=== PATIENT | female | born 1950 | race African-American/Black ===

== ENCOUNTER 2016-08-20 01:41 | Emergency (ER) | payer BC ==
[~2016-08-20] VITALS: Ht 165.1 cm; Wt 90.7 kg
[2016-08-20 03:10] VITALS: BP 136/72
[2016-08-20] MEDS ORDERED: HYDR-2666 PO (03:18)
--- NOTE | 2016-08-20 03:19 | PHYS DOC ---
Past Medical History Past Medical History: Hypertension Past Surgical History: Tonsillectomy, Other Additional Past Surgical Histo: hernia repair Alcohol Use: Occasionally Drug Use: None Adult General Chief Complaint Chief Complaint: TOE PROBLEM HPI HPI 66-year-old female presenting to the emergency department after pulling a piece of furniture torture body and accidentally ripping the toenail off her first left toe. She is pain is sharp throbbing moderate mild nonradiating without alleviating factors. Review of systems is negative for chest pain shortness of breath abdominal pain nausea vomiting. All other review systems is negative. Review of Systems Review of Systems see above Allergies Allergies Allergies Coded Allergies Type Severity Reaction Last Updated Verified No Known Drug Allergies 09/19/15 No Physical Exam Physical Exam Constitutional: Well developed, well nourished, no acute distress, non-toxic appearance. [] HENT: Normocephalic, atraumatic, bilateral external ears normal, oropharynx moist, no oral exudates, nose normal. [] Eyes: PERRLA, EOMI, conjunctiva normal, no discharge. [] Neck: Normal range of motion, no tenderness, supple, no stridor. [] Cardiovascular:Heart rate regular rhythm, no murmur [] Lungs & Thorax: Bilateral breath sounds clear to auscultation [] Abdomen: Bowel sounds normal, soft, no tenderness, no masses, no pulsatile masses. [] Skin: Warm, dry, no erythema, no rash. [] Back: No tenderness, no CVA tenderness. [] Extremities: No tenderness, no cyanosis, no clubbing, ROM intact, no edema. patient is partial tear of the first left toenail from the toe. Toenail still intact with germinal matrix. Neurologic: Alert and oriented X 3, normal motor function, normal sensory function, no focal deficits noted. [] Psychologic: Affect normal, judgement normal, mood normal. [] Current Patient Data Vital Signs Vital Signs Date Time Temp Pulse Resp B/P Pulse Ox O2 Delivery O2 Flow Rate FiO2 08/20/16 03:10 98.4 63 18 96 Room Air 98.4 EKG EKG [] Radiology/Procedures Radiology/Procedures [] Course & Med Decision Making Course & Med Decision Making Pertinent Labs and Imaging studies reviewed. (See chart for details) []66-year-old female presenting to the emergency Department after ripping toenail partially of her first left toe. the patient's toenail was placed back in an attempt position. germinal matrix still attached to toenail. patient subsequent discharged home. Dragon Disclaimer Dragon Disclaimer This electronic medical record was generated, in whole or in part, using a voice recognition dictation system. Departure Departure Impression: Primary Impression: Nail avulsion, toe Disposition: 01 HOME, SELF-CARE Condition: STABLE Referrals: THEODORA POSADA Jr, MD (PCP) Patient Instructions: Fingernail or Toenail Loss Additional Instructions: Thank you for allowing us to participate in your care today. Keep the toenail in place. Keep the wound washed and cleaned. Use protective dressing. Followup with your primary care physician in 3 days if your symptoms do not improve. If you do not have a primary care provider you can ask for a list of our primary care providers. Return to the emergency department you have any new or concerning findings. This should be evaluated by the primary care physician and any necessary consulting services for continued management within a few days after discharge. Return to emergency room if you have any new or concerning symptoms including but not limited to fever, chills, nausea, vomiting, intractable pain, any new rashes, chest pain, shortness of air, uncontrolled bleeding, difficulty breathing, and/or vision loss. Scripts Hydrocodone Bit/Acetaminophen (Hydrocodone-Apap 5-325 )1 Each Tablet1 Tab PO PRN Q6HRS PRN PAIN #7 TAB Be careful as this medication may cause you to be drowsy or tired. Do not drive on this medication. Prov:ISAAK FERMIN MD 08/20/16 ISAAK FERMIN MD Aug 20, 2016 03:18
== END 2016-08-20 03:30 | disposition home or self-care (01) ==
LOC: ER 01:41
DX: S91.202A Unspecified open wound of left great toe with damage to nail, initial encounter (principal); I10 Essential (primary) hypertension; X58.XXXA Exposure to other specified factors, initial encounter; Y93.89 Activity, other specified; Y92.89 Other specified places as the place of occurrence of the external cause; Y99.8 Other external cause status
CPT/HCPCS: 11730; 99283; 99284-25

== ENCOUNTER → 2017-01-20 | Outpatient (CLI) | payer BC ==
[~2017-01-20] MED LIST: HYDR-2758 PO
--- NOTE | 2017-01-20 14:12 | RAD ---
DATE: 01/20/2017 EXAM: DIGITAL DIAGNOSTIC RT, BREAST RIGHT HISTORY: 6 month follow-up breast nodule COMPARISON: 05/21/2016 This study was interpreted with the benefit of Computerized Aided Detection (CAD). The breast parenchyma shows scattered fibroglandular densities. Breast parenchyma level B. FINDINGS: The fibroglandular pattern in the right breast is unchanged. A small nodule projected over the axillary tail region of the right breast on the oblique view of the previous study is no longer visible. This may be due to technical factors including its far posterior location, or it may have resolved. No new or enlarging breast densities are seen. There are stable medium sized right axillary lymph nodes. No suspicious microcalcifications are evident. Right breast ultrasound, 01/20/2017: A targeted ultrasound exam was performed of the abnormal areas delineated on the 06/10/2016 study. At the 10:00 location there are heterogeneous fibroglandular shadows. The small nodule seen in that region on the previous study is no longer visible. Careful scanning of the right axilla reveals 2 benign-appearing lymph nodes. The largest of these measures 2 x 6 mm and demonstrates a normal echogenic hilum. IMPRESSION: 1. The small nodule seen at the 10:00 location on the previous studies is no longer visible either mammographically or sonographically. 2. Benign-appearing right axillary lymph nodes. 3. Bilateral mammography in 6 months is suggested BI-RADS CATEGORY: 3 PROBABLY BENIGN FINDING(S)-SHORT INTERVAL FOLLOW-UP SUGGESTED RECOMMENDED FOLLOW-UP: 6M 6 MONTH FOLLOW-UP PQRS compliance statement: Patient information was entered into a reminder system with a target due date for the next mammogram. Mammography is a sensitive method for finding small breast cancers, but it does not detect them all and is not a substitute for careful clinical examination. A negative mammogram does not negate a clinically suspicious finding and should not result in delay in biopsying a clinically suspicious abnormality. "Our facility is accredited by the [employer] Mammography [employer]."
== END | disposition home or self-care (01) ==
LOC: KCIC MAMMO 12:04
PROVIDERS: ATTEND Internal Medicine
DX: N63 Unspecified lump in breast (principal)
CPT/HCPCS: 76641; G0206; 77065

== ENCOUNTER → 2017-07-25 | Outpatient (CLI) | payer BC | END | disposition home or self-care (01) | LOC: KCIC MAMMO 12:14 | DX: N63.20 Unspecified lump in the left breast, unspecified quadrant (principal) | CPT/HCPCS: 76641; 77066 ==

== ENCOUNTER → 2018-10-30 | Outpatient (CLI) | payer BC, MEDICARE ==
[~2018-10-30] MED LIST changes: -HYDR-2758 PO; +HYDR-2761 PO
--- NOTE | 2018-10-31 17:25 | RAD ---
DATE: 10/30/2018 EXAM: MAMMO HALLE SCREENING BILATERAL HISTORY: Routine screening COMPARISON: 05/21/2016 and 07/25/2017 mammographic exams This study was interpreted with the benefit of Computerized Aided Detection (CAD). Breast Density: SCATTERED The breast parenchyma shows scattered fibroglandular densities. Breast parenchyma level B. FINDINGS: Benign-appearing axillary lymph nodes are present. No dominant mass, suspicious calcification, or distortion. IMPRESSION: Benign stable findings. BI-RADS CATEGORY: 1 NEGATIVE RECOMMENDED FOLLOW-UP: 12M 12 MONTH FOLLOW-UP PQRS compliance statement: Patient information was entered into a reminder system with a target due date in one year for the next mammogram. Mammography is a sensitive method for finding small breast cancers, but it does not detect them all and is not a substitute for careful clinical examination. A negative mammogram does not negate a clinically suspicious finding and should not result in delay in biopsying a clinically suspicious abnormality. "Our facility is accredited by the [employer] Mammography Program."
== END | disposition home or self-care (01) ==
LOC: MAMMO 13:40
PROVIDERS: ATTEND Internal Medicine
DX: Z12.31 Encounter for screening mammogram for malignant neoplasm of breast (principal); R92.8 Other abnormal and inconclusive findings on diagnostic imaging of breast
CPT/HCPCS: 77063; 77067

== ENCOUNTER 2020-01-25 13:32 | Inpatient (IN) | payer BC, MEDICARE ==
[~2020-01-25] VITALS: Ht 160 cm; Wt 87.7 kg
[2020-01-25 14:21] LABS: BILIRUBIN,URINE NEGATIVE (NEG); CLARITY,URINE CLEAR; COLOR,URINE YELLOW; NITRITE,URINE NEGATIVE (NEG); PH,URINE 5.5 (<5.0-8.0); PROTEIN,URINE NEGATIVE (NEG-TRACE); UROBILINOGEN,URINE 0.2 mg/dL (0.2 mg/dL)
--- NOTE | 2020-01-25 14:24 | PHYS DOC ---
Past Medical History Past Medical History: Hypertension Past Surgical History: Tonsillectomy, Other Additional Past Surgical Histo: hernia repair Smoking Status: Current Every Day Smoker Alcohol Use: Occasionally Drug Use: None General Adult EDM: Chief Complaint: BLURRED/DOUBLE VISION HPI: HPI: 69-year-old female presents emergency department today with a sudden episode of double vision. This happened at about 1 PM. It lasted for a few seconds and then resolved. It then recurred approximately 10 to 15 minutes later. She denies any arm numbness or weakness. She denies any slurred speech or difficulty ambulating. She does not have a history of a stroke but does have a history of high blood pressure. She has hypertriglyceridemia. She does not have diabetes. Review of systems negative for chest pain shortness of breath vomiting fevers chills or abdominal pain. All other review of systems negative. ED course: 69-year-old female presenting with sudden double vision that recurred at approximately 1 PM. She is now neurologically back to normal. Afebrile here heart rate within normal meds. Satting well on room air. Blood pressure 184/79. CBC unremarkable. Chemistry panel unremarkable. moderate leuk esterase with some bacteria. We will give 1 dose of Rocephin here. Will admit the pa tient to doctor Starr who accepts patient for admission. We will place a consult for neurology and the patient will likely benefit from an MRI of the brain. 1 dose of chewable aspirin ordered for the patient here in the emergency department as long as the patient passes a swallow screen. Heart Score: Risk Factors: Risk Factors: DM, Current or recent (<one month) smoker, HTN, HLP, family history of CAD, obesity. Risk Scores: Score 0 - 3: 2.5% MACE over next 6 weeks - Discharge Home Score 4 - 6: 20.3% MACE over next 6 weeks - Admit for Clinical Observation Score 7 - 10: 72.7% MACE over next 6 weeks - Early Invasive Strategies Allergies: Allergies: Allergies Coded Allergies Type Severity Reaction Last Updated Verified No Known Drug Allergies 01/25/20 No Physical Exam: PE: Constitutional: Well developed, well nourished, no acute distress, non-toxic appearance. [] HENT: Normocephalic, atraumatic, bilateral external ears normal, oropharynx moist, no oral exudates, nose normal. [] Eyes: PERRLA, EOMI, conjunctiva normal, no discharge. [] Neck: Normal range of motion, no tenderness, supple, no stridor. [] Cardiovascular:Heart rate regular rhythm, no murmur [] Lungs & Thorax: Bilateral breath sounds clear to auscultation [] Abdomen: Bowel sounds normal, soft, no tenderness, no masses, no pulsatile masses. [] Skin: Warm, dry, no erythema, no rash. [] Back: No tenderness, no CVA tenderness. [] Extremities: No tenderness, no cyanosis, no clubbing, ROM intact, no edema. [] Neurologic: Mental status: Awake oriented and alert x3 Cranial nerves: Extraocular movements intact, eyebrows shona bilaterally, smile symmetric, uvula elevation nl, shoulder shrug intact bilaterally, tongue protrusion normal DTRs: 2+ Sensation: equal and normal in all extremities Strength: 5/5 in upper and lower extremities bilaterally Psychologic: Affect normal, judgement normal, mood normal. [] EKG: EKG: [] Radiology/Procedures: Radiology/Procedures: [] Course & Med Decision Making: Course & Med Decision Making Pertinent Labs and Imaging studies reviewed. (See chart for details) [] Dragon Disclaimer: Dragon Disclaimer: This electronic medical record was generated, in whole or in part, using a voice recognition dictation system. Departure Departure Impression: Primary Impression: TIA (transient ischemic attack) Disposition: ADMITTED INPATIENT Admitting Physician: ROMAN Condition: STABLE Referrals: BROCK WALTON MD (PCP) Justicifation of Admission Dx: Justifications for Admission: Justification of Admission Dx: Yes Stroke - Ischemic: Stroke-Ischemic ISAAK FERMIN MD Jan 25, 2020 14:24
[2020-01-25 14:33] LABS: BACTERIA,URINE MODERATE /HPF (0-FEW); RBC,URINE RARE /HPF (0-2); SQUAMOUS EPITHELIAL CELL,UR MOD /LPF
--- NOTE | 2020-01-25 14:56 | RAD ---
AP chest. HISTORY: Cough, double vision AP view was taken of the chest. Lungs are clear. Heart is normal in size. There is no pleural effusion. IMPRESSION: 1. No acute chest disease. Electronically signed by: Tom Ware MD (01/25/2020 2:53 PM) [id number]
[2020-01-25 15:00] LABS: BASO % 1 % (0-3); EOS # 0.2 x10^3/uL (0.0-0.7); EOS % 5 % (0-3); HEMATOCRIT 44.6 % (36.0-47.0); HEMOGLOBIN 15.7 g/dL (12.0-15.5); LYMPH # 1.3 x10^3/uL (1.0-4.8); LYMPH % 28 % (24-48); MEAN CORPUSCULAR HEMOGLOBIN 35 pg (25-35); MEAN CORPUSCULAR HGB CONC 35 g/dL (31-37); MEAN CORPUSCULAR VOLUME 98 fL (79-100); MONO # 0.4 x10^3/uL (0.0-1.1); MONO % 9 % (0-9); NEUT # 2.7 x10^3/uL (1.8-7.7); NEUT % 57 % (31-73); PLATELET COUNT 257 x10^3/uL (140-400); RED BLOOD COUNT 4.54 x10^6/uL (3.50-5.40); RED CELL DISTRIBUTION WIDTH 13.6 % (11.5-14.5); WHITE BLOOD COUNT 4.7 x10^3/uL (4.0-11.0)
[2020-01-25 16:19] LABS: CALCIUM 8.2 mg/dL (8.5-10.1); CREATININE 0.7 mg/dL (0.6-1.0); POTASSIUM 3.9 mmol/L (3.5-5.1)
[2020-01-25 16:30] LABS: ALBUMIN 3.6 g/dL (3.4-5.0); ALBUMIN/GLOBULIN RATIO 1.3 (1.0-1.7); TOTAL BILIRUBIN 0.6 mg/dL (0.2-1.0); TOTAL PROTEIN 6.3 g/dL (6.4-8.2)
--- NOTE | 2020-01-25 16:52 | RAD ---
STUDY: CT head without contrast INDICATION: Double vision. COMPARISON: None recently. TECHNIQUE: Axial CT imaging through the head without the use of intravenous contrast. Sagittal and coronal reformats were obtained. One or more of the following individualized dose reduction techniques were utilized for this examination: 1. Automated exposure control 2. Adjustment of the mA and/or kV according to patient size 3. Use of iterative reconstruction technique. FINDINGS: No acute intracranial hemorrhage. Vazquez-white matter differentiation is maintained. No mass effect, midline shift or hydrocephalus. Unremarkable CT appearance of the orbits. No acute calvarial abnormality. No layering fluid within the visualized paranasal sinuses. Normally aerated mastoid air cells and middle ears. IMPRESSION: Unremarkable head CT. Electronically signed by: SHEBA VÁZQUEZ MD (01/25/2020 4:49 PM) [id number]
[2020-01-25] MEDS ORDERED: IV NORMAL SALINE 1000ML BAG 1,000 ML IV SCH (18:02)
[2020-01-25] MEDS ORDERED: ASPIRIN CHEWABLE 81 MG TABLET. PO ONE (18:15)
[2020-01-25] MEDS ORDERED: cefTRIAXone IV Push 1 GM VIAL. IVP ONE (19:30)
[2020-01-25] MEDS ORDERED: amLODIPine BESYLATE 5 MG TABLET PO ONE (21:00)
--- NOTE | 2020-01-25 21:09 | PDOC1 ---
History and Physical Date of Admission Date of Admission DATE: 01/25/20 TIME: 20:40 Identification/Chief Complaint Chief Complaint change in vision Problems: (1) TIA (transient ischemic attack) Source Source: Chart review, Patient History of Present Illness History of Present Illness 69 year old BF who presents with 3 day hx of blurry vision that worsened around 1 pm. she reported to ER physician feeling of "double vision" but did not endorse this to me. states it was more blurry vision. patient reports hx of cataract for past 4-5 years and scheduled to see a specialist soon. she denies any focal weakness, numbness or tingling. no difficulty with ambulation. no change in speech. no facial weakness, facial asymmetry, or facial numbness. no prior hx of stroke. only hx of HTN but not on meds per med rec. patient also endorses cough and cold like symptoms. no exposure to anyone with covid. CT head in ED stable. labs stable admitted to hospitalist service for TIA rule out. neuro consulted. Past Medical History Past Medical History HTN Past Surgical History Past Surgical History denies Family History Family History reviewed and denies Social History Smoke: No ALCOHOL: none Drugs: None Current Problem List Problem List Problems Medical Problems: (1) TIA (transient ischemic attack) Status: Acute Current Medications Current Medications Current Medications Aspirin (Aspirin Chewable) 324 mg 1X ONCE PO Last administered on 01/25/20at 18:34; Start 01/25/20 at 18:15; Stop 01/25/20 at 18:16; Status DC Sodium Chloride 1,000 ml @ 100 mls/hr Q10H IV Last administered on 01/25/20at 18:35; Start 01/25/20 at 18:02; Stop 01/26/20 at 00:01 Ceftriaxone Sodium (Rocephin) 1 gm 1X ONCE IVP Last administered on 01/25/20at 19:59; Start 01/25/20 at 19:30; Stop 01/25/20 at 19:31; Status DC Active Scripts Active Hydrocodone-Apap 5-325 (Hydrocodone Bit/Acetaminophen) 1 Each Tablet 1 Tab PO PRN Q6HRS PRN Be careful as this medication may cause you to be drowsy or tired. Do not drive on this medication. Allergies Allergies: Coded Allergies: No Known Drug Allergies (Unverified , 01/25/20) ROS Review of System CONSTITUTIONAL: No fever or chills EYES: No recent changes SKIN: No rash or itching CARDIOVASCULAR: No chest pain, syncope, palpitations, or edema RESPIRATORY: No SOB or cough GASTROINTESTINAL: No nausea, vomiting or abdominal pain NEUROLOGICAL: No headaches or weakness ENDOCRINE: No cold or heat intolerance GENITOURINARY: No urgency or frequency of urination MUSCULOSKELETAL: No back pain or joint pain LYMPHATICS: No enlarged lymph nodes PSYCHIATRIC: No anxiety or depression Physical Exam Physical Exam GENERAL: No apparent distress. Alert and oriented. HEENT: Head normocephalic, atraumatic. NECK: Supple LUNGS: Clear to auscultation. HEART: RRR, S1, S2 present, pulses intact ABDOMEN: Soft, positive bowel sounds. EXTREMITIES: No cyanosis or edema. NEUROLOGIC: Normal speech, normal tone PSYCHIATRIC: Normal affect, normal mood. SKIN: No ulceration. Vitals Vitals Vital Signs Date Time Temp Pulse Resp B/P (MAP) Pulse Ox O2 Delivery O2 Flow Rate FiO2 01/25/20 19:27 62 18 147/78 (101) 97 Room Air 01/25/20 14:00 98.3 98.3 Labs Labs Laboratory Tests Test 01/25/20 13:50 01/25/20 14:46 01/25/20 15:27 Urine Collection Type Unknown Urine Color Yellow Urine Clarity Clear Urine pH 5.5 (<5.0-8.0) Urine Specific [place] 1.020 (1.000-1.030) Urine Protein Negative mg/dL (NEG-TRACE) Urine Glucose (UA) Negative mg/dL (NEG) Urine Ketones (Stick) Negative mg/dL (NEG) Urine Blood Negative (NEG) Urine Nitrite Negative (NEG) Urine Bilirubin Negative (NEG) Urine Urobilinogen Dipstick 0.2 mg/dL (0.2 mg/dL) Urine Leukocyte Esterase Moderate (NEG) Urine RBC Rare /HPF (0-2) Urine WBC 5-10 /HPF (0-4) Urine Squamous Epithelial Cells Mod /LPF Urine Bacteria Moderate /HPF (0-FEW) Urine Mucus Slight /LPF White Blood Count 4.7 x10^3/uL (4.0-11.0) Red Blood Count 4.54 x10^6/uL (3.50-5.40) Hemoglobin 15.7 g/dL (12.0-15.5) Hematocrit 44.6 % (36.0-47.0) Mean Corpuscular Volume 98 fL (79-100) Mean Corpuscular Hemoglobin 35 pg (25-35) Mean Corpuscular Hemoglobin Concent 35 g/dL (31-37) Red Cell Distribution Width 13.6 % (11.5-14.5) Platelet Count 257 x10^3/uL (140-400) Neutrophils (%) (Auto) 57 % (31-73) Lymphocytes (%) (Auto) 28 % (24-48) Monocytes (%) (Auto) 9 % (0-9) Eosinophils (%) (Auto) 5 % (0-3) Basophils (%) (Auto) 1 % (0-3) Neutrophils # (Auto) 2.7 x10^3/uL (1.8-7.7) Lymphocytes # (Auto) 1.3 x10^3/uL (1.0-4.8) Monocytes # (Auto) 0.4 x10^3/uL (0.0-1.1) Eosinophils # (Auto) 0.2 x10^3/uL (0.0-0.7) Basophils # (Auto) 0.0 x10^3/uL (0.0-0.2) Sodium Level 141 mmol/L (136-145) Potassium Level 3.9 mmol/L (3.5-5.1) Chloride Level 106 mmol/L (98-107) Carbon Dioxide Level 27 mmol/L (21-32) Anion Gap 8 (6-14) Blood Urea Nitrogen 8 mg/dL (7-20) Creatinine 0.7 mg/dL (0.6-1.0) Estimated GFR (Cockcroft-Gault) 101.0 BUN/Creatinine Ratio 11 (6-20) Glucose Level 100 mg/dL (70-99) Calcium Level 8.2 mg/dL (8.5-10.1) Total Bilirubin 0.6 mg/dL (0.2-1.0) Aspartate Amino Transf (AST/SGOT) 20 U/L (15-37) Alanine Aminotransferase (ALT/SGPT) 32 U/L (14-59) Alkaline Phosphatase 99 U/L (46-116) Troponin I Quantitative < 0.017 ng/mL (0.000-0.055) Total Protein 6.3 g/dL (6.4-8.2) Albumin 3.6 g/dL (3.4-5.0) Albumin/Globulin Ratio 1.3 (1.0-1.7) Laboratory Tests Test 01/25/20 13:50 01/25/20 14:46 01/25/20 15:27 Urine Collection Type Unknown Urine Color Yellow Urine Clarity Clear Urine pH 5.5 (<5.0-8.0) Urine Specific [place] 1.020 (1.000-1.030) Urine Protein Negative mg/dL (NEG-TRACE) Urine Glucose (UA) Negative mg/dL (NEG) Urine Ketones (Stick) Negative mg/dL (NEG) Urine Blood Negative (NEG) Urine Nitrite Negative (NEG) Urine Bilirubin Negative (NEG) Urine Urobilinogen Dipstick 0.2 mg/dL (0.2 mg/dL) Urine Leukocyte Esterase Moderate (NEG) Urine RBC Rare /HPF (0-2) Urine WBC 5-10 /HPF (0-4) Urine Squamous Epithelial Cells Mod /LPF Urine Bacteria Moderate /HPF (0-FEW) Urine Mucus Slight /LPF White Blood Count 4.7 x10^3/uL (4.0-11.0) Red Blood Count 4.54 x10^6/uL (3.50-5.40) Hemoglobin 15.7 g/dL (12.0-15.5) Hematocrit 44.6 % (36.0-47.0) Mean Corpuscular Volume 98 fL (79-100) Mean Corpuscular Hemoglobin 35 pg (25-35) Mean Corpuscular Hemoglobin Concent 35 g/dL (31-37) Red Cell Distribution Width 13.6 % (11.5-14.5) Platelet Count 257 x10^3/uL (140-400) Neutrophils (%) (Auto) 57 % (31-73) Lymphocytes (%) (Auto) 28 % (24-48) Monocytes (%) (Auto) 9 % (0-9) Eosinophils (%) (Auto) 5 % (0-3) Basophils (%) (Auto) 1 % (0-3) Neutrophils # (Auto) 2.7 x10^3/uL (1.8-7.7) Lymphocytes # (Auto) 1.3 x10^3/uL (1.0-4.8) Monocytes # (Auto) 0.4 x10^3/uL (0.0-1.1) Eosinophils # (Auto) 0.2 x10^3/uL (0.0-0.7) Basophils # (Auto) 0.0 x10^3/uL (0.0-0.2) Sodium Level 141 mmol/L (136-145) Potassium Level 3.9 mmol/L (3.5-5.1) Chloride Level 106 mmol/L (98-107) Carbon Dioxide Level 27 mmol/L (21-32) Anion Gap 8 (6-14) Blood Urea Nitrogen 8 mg/dL (7-20) Creatinine 0.7 mg/dL (0.6-1.0) Estimated GFR (Cockcroft-Gault) 101.0 BUN/Creatinine Ratio 11 (6-20) Glucose Level 100 mg/dL (70-99) Calcium Level 8.2 mg/dL (8.5-10.1) Total Bilirubin 0.6 mg/dL (0.2-1.0) Aspartate Amino Transf (AST/SGOT) 20 U/L (15-37) Alanine Aminotransferase (ALT/SGPT) 32 U/L (14-59) Alkaline Phosphatase 99 U/L (46-116) Troponin I Quantitative < 0.017 ng/mL (0.000-0.055) Total Protein 6.3 g/dL (6.4-8.2) Albumin 3.6 g/dL (3.4-5.0) Albumin/Globulin Ratio 1.3 (1.0-1.7) VTE Prophylaxis Ordered VTE Prophylaxis Devices: Yes VTE Pharmacological Prophylaxi: Yes Assessment/Plan Assessment/Plan ASSESSMENT Double Vision/Change in Vision Hx of Cataract HTN PLAN neuro checks dose of ASA given in ED check lipids, TSH, and a1c start norvasc no neuro deficit based on my exam neuro consult defer MRI, further workup to neuro. DVT ppx full code Justicifation of Admission Dx: Justifications for Admission: Justification of Admission Dx: Yes Stroke - Ischemic: Stroke-Ischemic BONIFACIO CASTELLANOS MD Jan 25, 2020 21:09
[2020-01-25 21:13] LABS: CHOLESTEROL/HDL RATIO 3.8
[2020-01-25] MEDS ORDERED: POTA10TA12 PO (21:25)
[2020-01-25] MEDS ORDERED: AMLO10TA8 PO (21:25)
[2020-01-25] MEDS ORDERED: LORA0.5T96 PO (21:25)
[2020-01-25] MEDS ORDERED: METF-658 PO (21:25)
[2020-01-25] MEDS ORDERED: BYSTOLIC20 MG PO (21:25)
[2020-01-25] MEDS ORDERED: BENZOCAINE/MENTHOL LOZENGE. PO PRN (22:00)
[2020-01-25 23:00] VITALS: BP 152/70
[2020-01-26 03:00] VITALS: BP 127/67
[2020-01-26 05:38] LABS: CALCIUM 8.5 mg/dL (8.5-10.1); CREATININE 0.7 mg/dL (0.6-1.0); POTASSIUM 3.6 mmol/L (3.5-5.1)
[2020-01-26 05:47] LABS: BASO % 1 % (0-3); EOS # 0.3 x10^3/uL (0.0-0.7); EOS % 5 % (0-3); HEMATOCRIT 46.6 % (36.0-47.0); HEMOGLOBIN 15.9 g/dL (12.0-15.5); LYMPH # 2.1 x10^3/uL (1.0-4.8); LYMPH % 37 % (24-48); MEAN CORPUSCULAR HEMOGLOBIN 34 pg (25-35); MEAN CORPUSCULAR HGB CONC 34 g/dL (31-37); MEAN CORPUSCULAR VOLUME 100 fL (79-100); MONO # 0.5 x10^3/uL (0.0-1.1); MONO % 9 % (0-9); NEUT # 2.7 x10^3/uL (1.8-7.7); NEUT % 49 % (31-73); PLATELET COUNT 245 x10^3/uL (140-400); RED BLOOD COUNT 4.65 x10^6/uL (3.50-5.40); RED CELL DISTRIBUTION WIDTH 13.3 % (11.5-14.5); WHITE BLOOD COUNT 5.5 x10^3/uL (4.0-11.0)
[2020-01-26 07:00] VITALS: BP 184/98
--- NOTE | 2020-01-26 07:56 | PDOC ---
[employer] [facility] PROGRESS NOTE Chief Complaint Chief Complaint Double Vision/Change in Vision concern for TIA versus acute stroke Asymptomatic bacteriuria Hypertriglyceridemia Hx of Cataract HTN PLAN neuro checks dose of ASA given in ED check lipids, TSH, and a1c Continue Norvas neuro consult defer MRI, further workup to neuro. SCD for DVT ppx full code History of Present Illness History of Present Illness 69 year old BF who presents with 3 day hx of blurry vision that worsened around 1 pm. she reported to ER physician feeling of "double vision" but did not endorse this to me. states it was more blurry vision. patient reports hx of cataract for past 4-5 years and scheduled to see a specialist soon. she denies any focal weakness, numbness or tingling. no difficulty with ambulation. no change in speech. no facial weakness, facial asymmetry, or facial numbness. no prior hx of stroke. only hx of HTN but not on meds per med rec. patient also endorses cough and cold like symptoms. no exposure to anyone with covid. CT head in ED stable. labs stable admitted to hospitalist service for TIA rule out. neuro consulted. 01/26/2020 No rec events overnight. Patient's was seen and examined bedside today. No changes in neuro exam or vision changes. Vitals/I&O Vitals/I&O: Vital Signs Date Time Temp Pulse Resp B/P (MAP) Pulse Ox O2 Delivery O2 Flow Rate FiO2 01/26/20 03:00 98.0 81 18 127/67 (87) 98 Room Air 98.0 I & O 01/25/20 01/25/20 01/26/20 15:00 23:00 07:00 Intake Total 1000 ml 450 ml Balance 1000 ml 450 ml Physical Exam Physical Exam: GENERAL: No apparent distress. Alert and oriented. HEENT: Head normocephalic, atraumatic. NECK: Supple LUNGS: Clear to auscultation. HEART: RRR, S1, S2 present, pulses intact ABDOMEN: Soft, positive bowel sounds. EXTREMITIES: No cyanosis or edema. NEUROLOGIC: Normal speech, normal tone PSYCHIATRIC: Normal affect, normal mood. SKIN: No ulceration. Labs Labs: Laboratory Tests Test 01/25/20 13:50 01/25/20 14:46 01/25/20 15:27 01/26/20 05:00 Urine Collection Type Unknown Urine Color Yellow Urine Clarity Clear Urine pH 5.5 (<5.0-8.0) Urine Specific [place] 1.020 (1.000-1.030) Urine Protein Negative mg/dL (NEG-TRACE) Urine Glucose (UA) Negative mg/dL (NEG) Urine Ketones (Stick) Negative mg/dL (NEG) Urine Blood Negative (NEG) Urine Nitrite Negative (NEG) Urine Bilirubin Negative (NEG) Urine Urobilinogen Dipstick 0.2 mg/dL (0.2 mg/dL) Urine Leukocyte Esterase Moderate (NEG) Urine RBC Rare /HPF (0-2) Urine WBC 5-10 /HPF (0-4) Urine Squamous Epithelial Cells Mod /LPF Urine Bacteria Moderate /HPF (0-FEW) Urine Mucus Slight /LPF White Blood Count 4.7 x10^3/uL (4.0-11.0) 5.5 x10^3/uL (4.0-11.0) Red Blood Count 4.54 x10^6/uL (3.50-5.40) 4.65 x10^6/uL (3.50-5.40) Hemoglobin 15.7 g/dL (12.0-15.5) 15.9 g/dL (12.0-15.5) Hematocrit 44.6 % (36.0-47.0) 46.6 % (36.0-47.0) Mean Corpuscular Volume 98 fL (79-100) 100 fL (79-100) Mean Corpuscular Hemoglobin 35 pg (25-35) 34 pg (25-35) Mean Corpuscular Hemoglobin Concent 35 g/dL (31-37) 34 g/dL (31-37) Red Cell Distribution Width 13.6 % (11.5-14.5) 13.3 % (11.5-14.5) Platelet Count 257 x10^3/uL (140-400) 245 x10^3/uL (140-400) Neutrophils (%) (Auto) 57 % (31-73) 49 % (31-73) Lymphocytes (%) (Auto) 28 % (24-48) 37 % (24-48) Monocytes (%) (Auto) 9 % (0-9) 9 % (0-9) Eosinophils (%) (Auto) 5 % (0-3) 5 % (0-3) Basophils (%) (Auto) 1 % (0-3) 1 % (0-3) Neutrophils # (Auto) 2.7 x10^3/uL (1.8-7.7) 2.7 x10^3/uL (1.8-7.7) Lymphocytes # (Auto) 1.3 x10^3/uL (1.0-4.8) 2.1 x10^3/uL (1.0-4.8) Monocytes # (Auto) 0.4 x10^3/uL (0.0-1.1) 0.5 x10^3/uL (0.0-1.1) Eosinophils # (Auto) 0.2 x10^3/uL (0.0-0.7) 0.3 x10^3/uL (0.0-0.7) Basophils # (Auto) 0.0 x10^3/uL (0.0-0.2) 0.0 x10^3/uL (0.0-0.2) Sodium Level 141 mmol/L (136-145) 142 mmol/L (136-145) Potassium Level 3.9 mmol/L (3.5-5.1) 3.6 mmol/L (3.5-5.1) Chloride Level 106 mmol/L (98-107) 107 mmol/L (98-107) Carbon Dioxide Level 27 mmol/L (21-32) 26 mmol/L (21-32) Anion Gap 8 (6-14) 9 (6-14) Blood Urea Nitrogen 8 mg/dL (7-20) 9 mg/dL (7-20) Creatinine 0.7 mg/dL (0.6-1.0) 0.7 mg/dL (0.6-1.0) Estimated GFR (Cockcroft-Gault) 101.0 101.0 BUN/Creatinine Ratio 11 (6-20) Glucose Level 100 mg/dL (70-99) 100 mg/dL (70-99) Calcium Level 8.2 mg/dL (8.5-10.1) 8.5 mg/dL (8.5-10.1) Total Bilirubin 0.6 mg/dL (0.2-1.0) Aspartate Amino Transf (AST/SGOT) 20 U/L (15-37) Alanine Aminotransferase (ALT/SGPT) 32 U/L (14-59) Alkaline Phosphatase 99 U/L (46-116) Troponin I Quantitative < 0.017 ng/mL (0.000-0.055) Total Protein 6.3 g/dL (6.4-8.2) Albumin 3.6 g/dL (3.4-5.0) Albumin/Globulin Ratio 1.3 (1.0-1.7) Triglycerides Level 174 mg/dL (0-150) Cholesterol Level 135 mg/dL (0-200) LDL Cholesterol, Calculated 64 mg/dL (0-100) VLDL Cholesterol, Calculated 35 mg/dL (0-40) Non-HDL Cholesterol Calculated 99 mg/dL (0-129) HDL Cholesterol 36 mg/dL (40-60) Cholesterol/HDL Ratio 3.8 Thyroid Stimulating Hormone (TSH) 2.186 uIU/mL (0.358-3.74) Test 01/26/20 07:53 Glucose (Fingerstick) 110 mg/dL (70-99) Review of Systems Review of Systems: CONSTITUIONAL: Denies weight loss, fever and chills. HEENT: Denies changes in vision and hearing. RESPIRATORY: Denies SOB and cough. CV: Denies palpitations and CP. GI: Denies abdominal pain, nausea, vomiting and diarrhea. : Denies dysuria and urinary frequency. MSK: Denies myalgia and joint pain. SKIN: Denies rash and pruritus. NEUROLOGICAL: Denies headache and syncope. PSYCHIATRIC: Denies recent changes in mood. Denies anxiety and depression. Assessment and Plan Assessmemt and Plan Problems Medical Problems: (1) TIA (transient ischemic attack) Status: Acute Comment Review of Relevant I have reviewed the following items cruzito (where applicable) has been applied. Medications: Current Medications Medications (Trade) Dose Ordered Sig/Justin Route PRN Reason Start Time Stop Time Status Last Admin Dose Admin Aspirin (Aspirin Chewable) 324 mg 1X ONCE PO 01/25/20 18:15 01/25/20 18:16 DC 01/25/20 18:34 Sodium Chloride 1,000 ml @ 100 mls/hr Q10H IV 01/25/20 18:02 01/26/20 00:01 DC 01/25/20 18:35 Ceftriaxone Sodium (Rocephin) 1 gm 1X ONCE IVP 01/25/20 19:30 01/25/20 19:31 DC 01/25/20 19:59 Amlodipine Besylate (Norvasc) 5 mg 1X ONCE PO 01/25/20 21:00 01/25/20 21:10 DC 01/25/20 22:23 Justicifation of Admission Dx: Justifications for Admission: Justification of Admission Dx: Yes Stroke - Ischemic: Stroke-Ischemic WILL DE ANDA MD Jan 26, 2020 07:55
[2020-01-26] MEDS ORDERED: DEXTROSE 50% 25 GM / 50ML DISP.SYRIN. IV PRN (08:00)
[2020-01-26] MEDS: INSULIN LISPRO 300 UNITS/3 ML VIAL. SQ SCH ×3 (08:00→16:50)
[2020-01-26] MEDS ORDERED: LABETALOL 20 MG/4 ML DISP.SYRIN. IVP PRN (09:15)
[2020-01-26] MEDS: guaiFENesin DM 200MG/20MG 10 ML SYRUP PO PRN (09:21)
[2020-01-26] MEDS: amLODIPine BESYLATE 10 MG TABLET PO SCH (09:21)
[2020-01-26] MEDS: ASPIRIN CHEWABLE 81 MG TABLET. PO SCH (09:21)
--- NOTE | 2020-01-26 11:19 | PDOC2 ---
CONSULT Date of Consult Date of Consult DATE: 01/26/20 TIME: 11:19 Reason for Consult Reason for Consult: TIA Identification/Chief Complaint Chief Complaint blurry vision History of Present Illness Reason for Visit: This patient is 69-year-old woman who presented to emergency room with complaint of blurry vision patient denied any complaint of difficulty speaking tingling numbness on the face. Patient previously has history of cataract patient denied any complaint of headache nausea or vomiting chest pain shortness of breath. Patient denies any focal extremity weakness. Patient had improvement in symptoms. Patient also had some complaints of cough, cold symptoms. Patient denies any shortness of breath. Social History No ALCOHOL: none Drugs: None Current Problem List Problem List Problems Medical Problems: (1) TIA (transient ischemic attack) Status: Acute Current Medications Current Medications Current Medications Aspirin (Aspirin Chewable) 324 mg 1X ONCE PO Last administered on 01/25/20at 18:34; Start 01/25/20 at 18:15; Stop 01/25/20 at 18:16; Status DC Sodium Chloride 1,000 ml @ 100 mls/hr Q10H IV Last administered on 01/25/20at 18:35; Start 01/25/20 at 18:02; Stop 01/26/20 at 00:01; Status DC Ceftriaxone Sodium (Rocephin) 1 gm 1X ONCE IVP Last administered on 01/25/20at 19:59; Start 01/25/20 at 19:30; Stop 01/25/20 at 19:31; Status DC Amlodipine Besylate (Norvasc) 10 mg DAILY PO Last administered on 01/26/20at 09:21; Start 01/26/20 at 09:00 Amlodipine Besylate (Norvasc) 5 mg 1X ONCE PO Last administered on 01/25/20at 22:23; Start 01/25/20 at 21:00; Stop 01/25/20 at 21:10; Status DC Guaifenesin (Robitussin Dm) 10 ml PRN Q6HRS PRN PO COUGH Last administered on 01/26/20at 09:21; Start 01/25/20 at 22:00 Throat Lozenges (Cepacol Sore Throat Lozenge) 1 jean marie PRN Q2HRS PRN PO SORE THROAT; Start 01/25/20 at 22:00 Dextrose (Dextrose 50%-Water Syringe) 12.5 gm PRN Q15MIN PRN IV SEE COMMENTS; Start 01/26/20 at 08:00 Insulin Human Lispro (HumaLOG) 0-5 UNITS TIDWMEALS SQ ; Start 01/26/20 at 08:00 Atorvastatin Calcium (Lipitor) 40 mg QHS PO ; Start 01/26/20 at 21:00 Aspirin (Aspirin Chewable) 81 mg DAILYWBKFT PO Last administered on 01/26/20at 09:21; Start 01/26/20 at 09:00 Labetalol HCl (Normodyne Iv Push) 10 mg PRN Q2HR PRN IVP HYPERTENSION Last administered on 01/26/20at 09:22; Start 01/26/20 at 09:15 Ceftriaxone Sodium (Rocephin) 1 gm Q24H IVP ; Start 01/26/20 at 18:00 Active Scripts Active Hydrocodone-Apap 5-325 (Hydrocodone Bit/Acetaminophen) 1 Each Tablet 1 Tab PO PRN Q6HRS PRN Be careful as this medication may cause you to be drowsy or tired. Do not drive on this medication. Reported Ativan (Lorazepam) 0.5 Mg Tablet 0.5 Mg PO TID PRN Amlodipine Besylate 10 Mg Tablet 10 Mg PO DAILY Metformin Hcl Er (Metformin Hcl) 500 Mg Tab.er.24h 500 Mg PO BIDWMEALS Klor-Con 10 (Potassium Chloride) 10 Meq Tablet.er 10 Meq PO DAILY Bystolic (Nebivolol Hcl) 20 Mg Tablet 20 Mg PO DAILY Allergies Allergies: Coded Allergies: No Known Drug Allergies (Unverified , 01/25/20) Physical Exam Physical Exam General no acute distress. HEENT: Normocephalic and atraumatic. NECK: Supple without bruit Respiratory: Clear to auscultation bilaterally Heart: Regular rate and rhythm, S1S2 normal NEUROLOGIC: Mental status Alert oriented. Cranial nerve equally reactive pupils, and intact extraocular movements. No facial asymmetry. Palate elevates and tongue protrudes in midline. Reflexes are 1-2 with flexor plantar responses. Coordination no dysmetria Strength able to move all exts equally. Sensory exam is intact for light touch and pinprick. Gait in bed. A 10-point review of systems was obtained. Other than the history of present illness the remainder of the review of systems is negative. Vitals VITALS Vital Signs Date Time Temp Pulse Resp B/P (MAP) Pulse Ox O2 Delivery O2 Flow Rate FiO2 01/26/20 09:22 76 184/98 01/26/20 07:00 97.2 18 98 Room Air 97.2 Labs Labs Laboratory Tests Test 01/25/20 13:50 01/25/20 14:46 01/25/20 15:27 01/26/20 05:00 Urine Collection Type Unknown Urine Color Yellow Urine Clarity Clear Urine pH 5.5 (<5.0-8.0) Urine Specific [place] 1.020 (1.000-1.030) Urine Protein Negative mg/dL (NEG-TRACE) Urine Glucose (UA) Negative mg/dL (NEG) Urine Ketones (Stick) Negative mg/dL (NEG) Urine Blood Negative (NEG) Urine Nitrite Negative (NEG) Urine Bilirubin Negative (NEG) Urine Urobilinogen Dipstick 0.2 mg/dL (0.2 mg/dL) Urine Leukocyte Esterase Moderate (NEG) Urine RBC Rare /HPF (0-2) Urine WBC 5-10 /HPF (0-4) Urine Squamous Epithelial Cells Mod /LPF Urine Bacteria Moderate /HPF (0-FEW) Urine Mucus Slight /LPF White Blood Count 4.7 x10^3/uL (4.0-11.0) 5.5 x10^3/uL (4.0-11.0) Red Blood Count 4.54 x10^6/uL (3.50-5.40) 4.65 x10^6/uL (3.50-5.40) Hemoglobin 15.7 g/dL (12.0-15.5) 15.9 g/dL (12.0-15.5) Hematocrit 44.6 % (36.0-47.0) 46.6 % (36.0-47.0) Mean Corpuscular Volume 98 fL (79-100) 100 fL (79-100) Mean Corpuscular Hemoglobin 35 pg (25-35) 34 pg (25-35) Mean Corpuscular Hemoglobin Concent 35 g/dL (31-37) 34 g/dL (31-37) Red Cell Distribution Width 13.6 % (11.5-14.5) 13.3 % (11.5-14.5) Platelet Count 257 x10^3/uL (140-400) 245 x10^3/uL (140-400) Neutrophils (%) (Auto) 57 % (31-73) 49 % (31-73) Lymphocytes (%) (Auto) 28 % (24-48) 37 % (24-48) Monocytes (%) (Auto) 9 % (0-9) 9 % (0-9) Eosinophils (%) (Auto) 5 % (0-3) 5 % (0-3) Basophils (%) (Auto) 1 % (0-3) 1 % (0-3) Neutrophils # (Auto) 2.7 x10^3/uL (1.8-7.7) 2.7 x10^3/uL (1.8-7.7) Lymphocytes # (Auto) 1.3 x10^3/uL (1.0-4.8) 2.1 x10^3/uL (1.0-4.8) Monocytes # (Auto) 0.4 x10^3/uL (0.0-1.1) 0.5 x10^3/uL (0.0-1.1) Eosinophils # (Auto) 0.2 x10^3/uL (0.0-0.7) 0.3 x10^3/uL (0.0-0.7) Basophils # (Auto) 0.0 x10^3/uL (0.0-0.2) 0.0 x10^3/uL (0.0-0.2) Sodium Level 141 mmol/L (136-145) 142 mmol/L (136-145) Potassium Level 3.9 mmol/L (3.5-5.1) 3.6 mmol/L (3.5-5.1) Chloride Level 106 mmol/L (98-107) 107 mmol/L (98-107) Carbon Dioxide Level 27 mmol/L (21-32) 26 mmol/L (21-32) Anion Gap 8 (6-14) 9 (6-14) Blood Urea Nitrogen 8 mg/dL (7-20) 9 mg/dL (7-20) Creatinine 0.7 mg/dL (0.6-1.0) 0.7 mg/dL (0.6-1.0) Estimated GFR (Cockcroft-Gault) 101.0 101.0 BUN/Creatinine Ratio 11 (6-20) Glucose Level 100 mg/dL (70-99) 100 mg/dL (70-99) Calcium Level 8.2 mg/dL (8.5-10.1) 8.5 mg/dL (8.5-10.1) Total Bilirubin 0.6 mg/dL (0.2-1.0) Aspartate Amino Transf (AST/SGOT) 20 U/L (15-37) Alanine Aminotransferase (ALT/SGPT) 32 U/L (14-59) Alkaline Phosphatase 99 U/L (46-116) Troponin I Quantitative < 0.017 ng/mL (0.000-0.055) Total Protein 6.3 g/dL (6.4-8.2) Albumin 3.6 g/dL (3.4-5.0) Albumin/Globulin Ratio 1.3 (1.0-1.7) Triglycerides Level 174 mg/dL (0-150) Cholesterol Level 135 mg/dL (0-200) LDL Cholesterol, Calculated 64 mg/dL (0-100) VLDL Cholesterol, Calculated 35 mg/dL (0-40) Non-HDL Cholesterol Calculated 99 mg/dL (0-129) HDL Cholesterol 36 mg/dL (40-60) Cholesterol/HDL Ratio 3.8 Thyroid Stimulating Hormone (TSH) 2.186 uIU/mL (0.358-3.74) Test 01/26/20 07:53 01/26/20 11:05 Glucose (Fingerstick) 110 mg/dL (70-99) 138 mg/dL (70-99) Laboratory Tests Test 01/25/20 13:50 01/25/20 14:46 01/25/20 15:27 01/26/20 05:00 Urine Collection Type Unknown Urine Color Yellow Urine Clarity Clear Urine pH 5.5 (<5.0-8.0) Urine Specific [place] 1.020 (1.000-1.030) Urine Protein Negative mg/dL (NEG-TRACE) Urine Glucose (UA) Negative mg/dL (NEG) Urine Ketones (Stick) Negative mg/dL (NEG) Urine Blood Negative (NEG) Urine Nitrite Negative (NEG) Urine Bilirubin Negative (NEG) Urine Urobilinogen Dipstick 0.2 mg/dL (0.2 mg/dL) Urine Leukocyte Esterase Moderate (NEG) Urine RBC Rare /HPF (0-2) Urine WBC 5-10 /HPF (0-4) Urine Squamous Epithelial Cells Mod /LPF Urine Bacteria Moderate /HPF (0-FEW) Urine Mucus Slight /LPF White Blood Count 4.7 x10^3/uL (4.0-11.0) 5.5 x10^3/uL (4.0-11.0) Red Blood Count 4.54 x10^6/uL (3.50-5.40) 4.65 x10^6/uL (3.50-5.40) Hemoglobin 15.7 g/dL (12.0-15.5) 15.9 g/dL (12.0-15.5) Hematocrit 44.6 % (36.0-47.0) 46.6 % (36.0-47.0) Mean Corpuscular Volume 98 fL (79-100) 100 fL (79-100) Mean Corpuscular Hemoglobin 35 pg (25-35) 34 pg (25-35) Mean Corpuscular Hemoglobin Concent 35 g/dL (31-37) 34 g/dL (31-37) Red Cell Distribution Width 13.6 % (11.5-14.5) 13.3 % (11.5-14.5) Platelet Count 257 x10^3/uL (140-400) 245 x10^3/uL (140-400) Neutrophils (%) (Auto) 57 % (31-73) 49 % (31-73) Lymphocytes (%) (Auto) 28 % (24-48) 37 % (24-48) Monocytes (%) (Auto) 9 % (0-9) 9 % (0-9) Eosinophils (%) (Auto) 5 % (0-3) 5 % (0-3) Basophils (%) (Auto) 1 % (0-3) 1 % (0-3) Neutrophils # (Auto) 2.7 x10^3/uL (1.8-7.7) 2.7 x10^3/uL (1.8-7.7) Lymphocytes # (Auto) 1.3 x10^3/uL (1.0-4.8) 2.1 x10^3/uL (1.0-4.8) Monocytes # (Auto) 0.4 x10^3/uL (0.0-1.1) 0.5 x10^3/uL (0.0-1.1) Eosinophils # (Auto) 0.2 x10^3/uL (0.0-0.7) 0.3 x10^3/uL (0.0-0.7) Basophils # (Auto) 0.0 x10^3/uL (0.0-0.2) 0.0 x10^3/uL (0.0-0.2) Sodium Level 141 mmol/L (136-145) 142 mmol/L (136-145) Potassium Level 3.9 mmol/L (3.5-5.1) 3.6 mmol/L (3.5-5.1) Chloride Level 106 mmol/L (98-107) 107 mmol/L (98-107) Carbon Dioxide Level 27 mmol/L (21-32) 26 mmol/L (21-32) Anion Gap 8 (6-14) 9 (6-14) Blood Urea Nitrogen 8 mg/dL (7-20) 9 mg/dL (7-20) Creatinine 0.7 mg/dL (0.6-1.0) 0.7 mg/dL (0.6-1.0) Estimated GFR (Cockcroft-Gault) 101.0 101.0 BUN/Creatinine Ratio 11 (6-20) Glucose Level 100 mg/dL (70-99) 100 mg/dL (70-99) Calcium Level 8.2 mg/dL (8.5-10.1) 8.5 mg/dL (8.5-10.1) Total Bilirubin 0.6 mg/dL (0.2-1.0) Aspartate Amino Transf (AST/SGOT) 20 U/L (15-37) Alanine Aminotransferase (ALT/SGPT) 32 U/L (14-59) Alkaline Phosphatase 99 U/L (46-116) Troponin I Quantitative < 0.017 ng/mL (0.000-0.055) Total Protein 6.3 g/dL (6.4-8.2) Albumin 3.6 g/dL (3.4-5.0) Albumin/Globulin Ratio 1.3 (1.0-1.7) Triglycerides Level 174 mg/dL (0-150) Cholesterol Level 135 mg/dL (0-200) LDL Cholesterol, Calculated 64 mg/dL (0-100) VLDL Cholesterol, Calculated 35 mg/dL (0-40) Non-HDL Cholesterol Calculated 99 mg/dL (0-129) HDL Cholesterol 36 mg/dL (40-60) Cholesterol/HDL Ratio 3.8 Thyroid Stimulating Hormone (TSH) 2.186 uIU/mL (0.358-3.74) Test 01/26/20 07:53 01/26/20 11:05 Glucose (Fingerstick) 110 mg/dL (70-99) 138 mg/dL (70-99) Assessment/Plan Assessment/Plan This patient is 69-year-old woman who presented to emergency room with complaint of blurry vision patient denied any complaint of difficulty speaking tingling numbness on the face. Patient previously has history of cataract patient denied any complaint of headache nausea or vomiting chest pain shortness of breath. Patient denies any focal extremity weakness. Patient had improvement in symptoms. Patient also had some complaints of cough, cold symptoms. Patient denies any shortness of breath. 69-year-old woman presented with episode of possible T IA. Patient had improvement in symptoms. Patient had CT scan done brain did not show any evidence of acute intracranial etiology no evidence of acute hemorrhage or mass changes noted for chronic small vessel ischemic disease. Will get further MRI studies when stable. Patient also had a core weight test pending. Check carotid Doppler, 2-D echo. Continue aspirin for stroke prevention. Hypertension continue treat and monitor. Hyperlipidemia on statin. Continue medical management. Plan discussed with patient at length DEANA MADRID MD Jan 26, 2020 11:19
[2020-01-26 11:21] VITALS: BP 154/73
[2020-01-26 15:04] VITALS: BP 145/75
[2020-01-26] MEDS ORDERED: cefTRIAXone IV Push 1 GM VIAL. IVP SCH (18:00)
[2020-01-26 19:00] VITALS: BP 155/72
[2020-01-26] MEDS ORDERED: ATORVASTATIN CALCIUM 40 MG TABLET. PO SCH (21:00)
[2020-01-26 22:53] VITALS: BP 152/70
[2020-01-27 03:00] VITALS: BP 149/74
[2020-01-27 05:42] LABS: HEMOGLOBIN A1C 5.9 % (4.8-5.6)
[2020-01-27 07:00] VITALS: BP 134/59
[2020-01-27] MEDS: INSULIN LISPRO 300 UNITS/3 ML VIAL. SQ SCH ×3 (08:00→17:00)
[2020-01-27] MEDS: ASPIRIN CHEWABLE 81 MG TABLET. PO SCH (10:04)
[2020-01-27] MEDS: amLODIPine BESYLATE 10 MG TABLET PO SCH (10:04)
[2020-01-27] MEDS: guaiFENesin DM 200MG/20MG 10 ML SYRUP PO PRN (10:42)
[2020-01-27 10:50] VITALS: BP 146/70
--- NOTE | 2020-01-27 11:50 | RAD ---
Ultrasound carotid Doppler 01/27/2020 8:00 AM INDICATION: TIA COMPARISON: None available TECHNIQUE: Sonographic imaging of the carotid vasculature was performed utilizing grayscale, color Doppler and spectral waveform analysis. FINDINGS: (All velocities are measured cm per second) Right carotid: Minor calcified and noncalcified atheromatous plaque is identified. No significant luminal stenosis on grayscale imaging. Peak systolic velocity: Proximal common carotid artery: 76 Middle common carotid artery: 95 Distal common carotid artery: 80 Proximal internal carotid artery: 56 Middle internal carotid artery: 63 Distal internal carotid artery: 89 End-diastolic velocity: 18 External carotid artery: 65 Internal carotid artery/common carotid artery ratio: 0.58-0.93 Vertebral artery: Antegrade flow Left carotid: Minor calcified and noncalcified atheromatous plaque is identified. No significant luminal stenosis on grayscale imaging. Peak systolic velocity: Proximal common carotid artery: 95 Middle common carotid artery: 73 Distal common carotid artery: 74 Proximal internal carotid artery: 84 Middle internal carotid artery: 118 Distal internal carotid artery: 85 End-diastolic velocity: 30 External carotid artery: 110 Internal carotid artery/common carotid artery ratio: 1.2-1.6 Vertebral artery: Antegrade flow IMPRESSION: 1. No evidence for flow-limiting carotid stenosis. 2. Antegrade flow is identified in the vertebral arteries. 3. Evaluation of the carotid vasculature and measurements for luminal stenosis was performed utilizing NASCET criteria. Electronically signed by: Morena Dior MD (01/27/2020 11:47 AM) [facility]
--- NOTE | 2020-01-27 13:38 | PDOC ---
[employer] PROGRESS NOTE Chief Complaint Chief Complaint Double Vision/Change in Vision concern for TIA versus acute stroke COVID positive infection, asymptomatic Asymptomatic bacteriuria Hypertriglyceridemia Hx of Cataract HTN PLAN neuro checks per nursing floor Continue aspirin and atorvastatin check lipids, TSH, and a1c Continue Norvas Carotid Doppler completed. Pending echo Pending further neuro recommendations defer MRI, further workup to neuro. SCD for DVT ppx full code Disposal: Pending neuro recommendations, pending echo History of Present Illness History of Present Illness 69 year old BF who presents with 3 day hx of blurry vision that worsened around 1 pm. she reported to ER physician feeling of "double vision" but did not endorse this to me. states it was more blurry vision. patient reports hx of cataract for past 4-5 years and scheduled to see a specialist soon. she denies any focal weakness, numbness or tingling. no difficulty with ambulation. no change in speech. no facial weakness, facial asymmetry, or facial numbness. no prior hx of stroke. only hx of HTN but not on meds per med rec. 01/27/2020 No acute events overnight. Patient was seen and examined bedside. NIH score of 0. Patient is tolerating diet and ambulating without assistance. No acute vision changes. 01/26/2020 No rec events overnight. Patient's was seen and examined bedside today. No changes in neuro exam or vision changes. Vitals/I&O Vitals/I&O: Vital Signs Date Time Temp Pulse Resp B/P (MAP) Pulse Ox O2 Delivery O2 Flow Rate FiO2 01/27/20 10:50 98.0 67 18 146/70 (95) 97 Room Air 98.0 I & O 01/26/20 01/26/20 01/27/20 15:00 23:00 07:00 Intake Total 200 ml 650 ml 500 ml Balance 200 ml 650 ml 500 ml Physical Exam Physical Exam: GENERAL: No apparent distress. Alert and oriented. HEENT: Head normocephalic, atraumatic. NECK: Supple LUNGS: Clear to auscultation. HEART: RRR, S1, S2 present, pulses intact ABDOMEN: Soft, positive bowel sounds. EXTREMITIES: No cyanosis or edema. NEUROLOGIC: Normal speech, normal tone PSYCHIATRIC: Normal affect, normal mood. SKIN: No ulceration. Labs Labs: Laboratory Tests Test 01/26/20 16:19 7/19/20 11:09 Glucose (Fingerstick) 112 mg/dL (70-99) 139 mg/dL (70-99) Assessment and Plan Assessmemt and Plan Problems Medical Problems: (1) TIA (transient ischemic attack) Status: Acute Comment Review of Relevant I have reviewed the following items cruzito (where applicable) has been applied. Medications: Current Medications Medications (Trade) Dose Ordered Sig/Justin Route PRN Reason Start Time Stop Time Status Last Admin Dose Admin Atorvastatin Calcium (Lipitor) 40 mg QHS PO 01/26/20 21:00 01/26/20 20:12 Ceftriaxone Sodium (Rocephin) 1 gm Q24H IVP 01/26/20 18:00 01/26/20 18:18 DC 01/26/20 17:39 Justicifation of Admission Dx: Justifications for Admission: Justification of Admission Dx: Yes Stroke - Ischemic: Stroke-Ischemic WILL DE ANDA MD Jan 27, 2020 13:38
[2020-01-27 15:10] VITALS: BP 142/68
[2020-01-27] MEDS ORDERED: ASPI-630 PO (17:40)
--- NOTE | 2020-01-27 18:30 | NUR ---
THis RN escorted patient ambulating to private vehicle with education and belongings to main entrance. IV and telemonitor discontinued.
--- NOTE | 2020-01-27 22:25 | PDOC3 ---
[facility]-Discharge Summary Date of Admission: Date of Admission: Jan 25, 2020 Date of Discharge: Date of Discharge: Jan 27, 2020 Admission Diagnosis: Admitting Diagnosis: Double Vision/Change in Vision concern for TIA versus acute stroke Asymptomatic bacteriuria Hypertriglyceridemia Hx of Cataract HTN Discharge Diagnosis: Discharge Diagnosis: Double Vision/Change in Vision concern for TIA versus acute stroke COVID infection, asymptomatics Asymptomatic bacteriuria Hypertriglyceridemia Hx of Cataract HTN Hospital Course: Hospital Course: 69 year old BF who presents with 3 day hx of blurry vision that worsened around 1 pm. she reported to ER physician feeling of "double vision" but did not endorse this to me. states it was more blurry vision. patient reports hx of cataract for past 4-5 years and scheduled to see a specialist soon. she denies any focal weakness, numbness or tingling. no difficulty with ambulation. no change in speech. no facial weakness, facial asymmetry, or facial numbness. no prior hx of stroke. only hx of HTN but not on meds per med rec. patient also endorses cough and cold like symptoms. no exposure to anyone with covid. CT head in ED stable. labs stable admitted to hospitalist service for TIA rule out. neuro consulted. Patient was seen by neurology and recommended patient to have workup for sources for possible stroke. Carotid US was completed which was negative. From Neuro standpoint, patient was ok for DC as long as she was able to do the echo bubble study as an outpatient. On day of discharge. patient was doing well without any focal neuro changes or vision changes. The rest of the hospital course was uneventful. Patient was instructed to remained quarantined fo 14 days. Physical Exam: GENERAL: No apparent distress. Alert and oriented. HEENT: Head normocephalic, atraumatic. NECK: Supple LUNGS: Clear to auscultation. HEART: RRR, S1, S2 present, pulses intact ABDOMEN: Soft, positive bowel sounds. EXTREMITIES: No cyanosis or edema. NEUROLOGIC: Normal speech, normal tone PSYCHIATRIC: Normal affect, normal mood. SKIN: No ulceration. Disposition: Disposition/Orders: D/C to Home Activity: Activity: Resume previous activity Diet: Diet: Cardiac Medications: Home Meds Active Scripts Aspirin (ASPIRIN) 81 Mg Tab.chew, 81 MG PO DAILYWBKFT for stroke prevention for 30 Days, #30 TAB.CHEW Prov:WILL DE ANDA MD 01/27/20 Reported Medications Lorazepam (ATIVAN) 0.5 Mg Tablet, 0.5 MG PO TID PRN for ANXIETY / AGITATION, TAB 01/25/20 Amlodipine Besylate (AMLODIPINE BESYLATE) 10 Mg Tablet, 10 MG PO DAILY for HTN, TAB 01/25/20 Metformin Hcl (METFORMIN HCL ER) 500 Mg Tab.er.24h, 500 MG PO BIDWMEALS for DM, TAB 01/25/20 Nebivolol Hcl (BYSTOLIC) 20 Mg Tablet, 20 MG PO DAILY for HTN, TAB 01/25/20 Discontinued Reported Medications Potassium Chloride (KLOR-CON 10) 10 Meq Tablet.er, 10 MEQ PO DAILY for SUPPLEMENT, TAB 01/25/20 Scheduled Amlodipine Besylate (Amlodipine Besylate), 10 MG PO DAILY, (Reported) Aspirin (Aspirin), 81 MG PO DAILYWBKFT Metformin Hcl (Metformin Hcl Er), 500 MG PO BIDWMEALS, (Reported) Nebivolol Hcl (Bystolic), 20 MG PO DAILY, (Reported) Scheduled PRN Lorazepam (Ativan), 0.5 MG PO TID PRN for ANXIETY / AGITATION, (Reported) Discontinued Medications Potassium Chloride (Klor-Con 10), 10 MEQ PO DAILY, (Reported) Total Time: Total Time: Total spent in discharge planning was < 20 minutes Justicifation of Admission Dx: Justifications for Admission: Justification of Admission Dx: Yes Stroke - Ischemic: Stroke-Ischemic WILL DE ANDA MD Jan 27, 2020 22:25
--- NOTE | 2020-01-29 05:10 | EKG ---
[facility] [address] [place] [id number] Test Date: 2020-01-25 Test Time: 14:25:54 Pat Name: ANGELIKA MORALES Department: Room: Gender: F Press Leader: : 1950 Requested By: ISAAK FERMIN Order Number: [id number] Reading MD: Measurements Intervals Mobile Rate: 66 P: 22 TN: 180 QRS: -9 QRSD: 92 T: 6 QT: 414 QTc: 436 Interpretive Statements SINUS RHYTHM LEFTWARD AXIS QRS(T) CONTOUR ABNORMALITY CONSIDER ANTEROSEPTAL MYOCARDIAL DAMAGE POSSIBLY ABNORMAL ECG RI6.01 No previous ECG available for comparison
== END 2020-01-27 18:30 | disposition home or self-care (01) | DRG 178 ==
LOC: ER 13:32 → 6 SOUTH 18:00
PROVIDERS: ADMIT Internal Medicine; ATTEND Internal Medicine
DX: U07.1 COVID-19 (principal); G45.9 Transient cerebral ischemic attack, unspecified; E11.9 Type 2 diabetes mellitus without complications; E78.1 Pure hyperglyceridemia; E78.5 Hyperlipidemia, unspecified; I10 Essential (primary) hypertension; J00 Acute nasopharyngitis [common cold]; Z82.49 Family history of ischemic heart disease and other diseases of the circulatory system; Z87.891 Personal history of nicotine dependence; Z90.49 Acquired absence of other specified parts of digestive tract; Z79.899 Other long term (current) drug therapy
CPT/HCPCS: 36415; 70450; 71045; 80048; 80053; 80061; 81001; 82962; 83036; 84443; 84484; 85025; 87086; 93005; 93880; 96361; 96374; J0696; J1815; J3490; J7030; 99285-25; G0378; U0003-CS

== ENCOUNTER → 2021-04-06 | Outpatient (CLI) | payer BC, MEDICARE ==
[~2021-04-06] MED LIST changes: +AMLO-187 PO; +ASPI-630 PO; +BYSTOLIC20 MG PO; +LORA0.5T96 PO; +METF-658 PO; +POTA10TA12 PO
--- NOTE | 2021-04-09 14:42 | RAD ---
DATE: 04/06/2021 EXAM: MAMMO HALLE SCREENING BILATERAL HISTORY: Screening COMPARISON: Prior exams dating back to 2012 This study was interpreted with the benefit of Computerized Aided Detection (CAD). Breast Density: SCATTERED The breast parenchyma shows scattered fibroglandular densities. Breast parenchyma level B. FINDINGS: No mass, suspicious calcification, or architectural distortion in either breast. IMPRESSION: No evidence of malignancy. BI-RADS CATEGORY: 1 NEGATIVE RECOMMENDED FOLLOW-UP: 12M 12 MONTH FOLLOW-UP PQRS compliance statement: Patient information was entered into a reminder system with a target due date for the next mammogram. Mammography is a sensitive method for finding small breast cancers, but it does not detect them all and is not a substitute for careful clinical examination. A negative mammogram does not negate a clinically suspicious finding and should not result in delay in biopsying a clinically suspicious abnormality. "Our facility is accredited by the [employer] Mammography Program."
== END ==
LOC: MAMMO 13:46
PROVIDERS: ATTEND Internal Medicine
DX: Z12.31 Encounter for screening mammogram for malignant neoplasm of breast (principal)
CPT/HCPCS: 77063; 77067